=== PATIENT | female | born 1970 | race Caucasian/White ===

== ENCOUNTER 2017-03-24 16:15 | Emergency (ER) | payer OTHER ==
[~2017-03-24] VITALS: Ht 144.8 cm; Wt 84.8 kg
[2017-03-24 18:34] VITALS: BP 162/101
== END 2017-03-24 19:34 | disposition home or self-care (01) ==
LOC: ED 16:15
DX: M72.2 Plantar fascial fibromatosis (principal); E11.9 Type 2 diabetes mellitus without complications; I10 Essential (primary) hypertension; Z79.84 Long term (current) use of oral hypoglycemic drugs